=== PATIENT | male | born 1945 | race Caucasian/White ===

== ENCOUNTER 2019-09-19 09:02 | Day surgery (SDC) | payer MEDICARE, BC ==
[~2019-09-19 09:02] MED LIST: CHONDR SU A NA/HYALUR INTRAOC KIT (SURGICARE) ONE; DORZOLAMIDE HCL 2%/TIMOLOL MALEAT 0.5% OPH SOLN 10 ML OS PRN; EPINEPHRINE INJ/PF 1 MG/1 ML AMPULE ONE; KETOROLAC TROMETHAMINE 0.45% 4 DROP/0.4 ML DROPERETTE OS PRN; LIDOCAINE 1%/PHENYLEPHRINE 1.5% 1 ML VIAL ONE
[2019-09-19] MEDS ORDERED: ONDANSETRON HCL INJ/PF 4 MG/2 ML SDV ONE (09:05)
[2019-09-19] MEDS ORDERED: MIDAZOLAM 2 MG/2 ML INJ ONE (09:05)
[2019-09-19] MEDS ORDERED: FENTANYL CITRATE INJ/PF 100 MCG/2 ML AMPUL ONE (09:06)
[2019-09-19] MEDS: TETRACAINE HCL 0.5% OPH SOLN 4 ML OS PRN ×3 (09:50→10:22)
[2019-09-19] MEDS: BESIFLOXACIN HCL 0.6% OPH SUSP 5 ML BOTTLE OS PRN ×3 (09:51→10:43)
[2019-09-19] MEDS: CYCLOPENTOLATE 0.2%/PHENYLEPHRINE 1% OPH SOLN 2 ML OS PRN ×3 (09:51→10:12)
[2019-09-19] MEDS: TROPICAMIDE 1% OPH SOLN 15 ML OS PRN ×3 (09:51→10:12)
--- NOTE | 2019-09-20 07:40 | Operative Report ---
Operative Report-[facility] Operative Report: DATE OF SURGERY: 09/19/2019 PREOPERATIVE DIAGNOSIS: Cataracts, left eye POSTOPERATIVE DIAGNOSIS: Cataract, left eye OPERATION: Cataract extraction with insertion of an toric IOL of the left eye. Intraocular Lens Model: [13.5bj2by5 rotated to 88 degrees] Reason for surgery was difficulty seeing road signs SURGEON: Evan Upton MD ANESTHESIA: Topical PROCEDURE: After obtaining appropriate consent, the patient's left eye was prepped and draped in a sterile fashion as well as the surgeon in the sterile manner and cataract surgery was started. First a paracentesis blade was used to make a side-port incision. Viscoelastic was used to inflate the anterior chamber. Next a 2.4 mm incision was made with a 2.4 mm blade, clear corneal temporarily. A continuous capsulorrhexis was made using a cystotome and Utrata forceps. Following this hydrodissection was carried out to make commands fully loose and mobile and it was rotated 90 degrees. Following this, a divide and conquer technique was used to phacoemulsify the lens. The remaining cortex was removed with an irrigation/aspiration. Provisc was instilled into the capsular bag to inflate the bag.The intracular lens was placed. The remaining viscoelastic material was removed with irrigation/aspiration. Following this, the incision was found to be watertight. Besivance and Cosopt was instilled into the eye and a protective shield was placed over the eye. The patient was turned to the postoperative recovery in a stable condition.
== END 2019-09-19 11:38 | disposition home or self-care (01) ==
LOC: SC 09:02
PROVIDERS: ATTEND Internal Medicine
DX: H25.13 Age-related nuclear cataract, bilateral (principal); I10 Essential (primary) hypertension; E78.00 Pure hypercholesterolemia, unspecified; Z87.891 Personal history of nicotine dependence
CPT/HCPCS: 66984; 00142; V2787; J2250; J3490 ×2; A9270; J0171; J3010; J2405; J2370; 142

== ENCOUNTER 2019-10-12 09:39 | Day surgery (SDC) | payer MEDICARE, BC ==
[~2019-10-12 09:39] MED LIST changes: -DORZOLAMIDE HCL 2%/TIMOLOL MALEAT 0.5% OPH SOLN 10 ML OS PRN; +KETOROLAC TROMETHAMINE 0.45% 4 DROP/0.4 ML DROPERETTE OD PRN; -KETOROLAC TROMETHAMINE 0.45% 4 DROP/0.4 ML DROPERETTE OS PRN
[2019-10-12] MEDS: TETRACAINE HCL 0.5% OPH SOLN 4 ML OD PRN ×3 (10:46→11:30)
[2019-10-12] MEDS: BESIFLOXACIN HCL 0.6% OPH SUSP 5 ML BOTTLE OD PRN ×4 (10:47→11:57)
[2019-10-12] MEDS: CYCLOPENTOLATE 0.2%/PHENYLEPHRINE 1% OPH SOLN 2 ML OD PRN ×3 (10:47→11:13)
[2019-10-12] MEDS: TROPICAMIDE 1% OPH SOLN 15 ML OD PRN ×3 (10:47→11:13)
[2019-10-12] MEDS ORDERED: FENTANYL CITRATE INJ/PF 100 MCG/2 ML AMPUL ONE (11:11)
[2019-10-12] MEDS ORDERED: MIDAZOLAM 2 MG/2 ML INJ ONE ×2 (11:11→11:29)
[2019-10-12] MEDS: DORZOLAMIDE HCL 2%/TIMOLOL MALEAT 0.5% OPH SOLN 10 ML OD PRN ×2 (11:57)
--- NOTE | 2019-10-12 16:04 | Operative Report ---
Operative Report-[facility] Operative Report: DATE OF SURGERY: 10/12/2019 PREOPERATIVE DIAGNOSIS: Cataract, right eye POSTOPERATIVE DIAGNOSIS: Cataract, right eye OPERATION: Cataract extraction with insertion of an toric IOL of the right eye. Intraocular Lens Model: [13.0 [id number] rotated to 85 degrees] Reason for surgery was difficulty seeing small print SURGEON: Evan Upton MD ANESTHESIA: Topical PROCEDURE: After obtaining appropriate consent, the patient's right eye was prepped and draped in a sterile fashion as well as the surgeon in the sterile manner and cataract surgery was started. First a paracentesis blade was used to make a side-port incision. Viscoelastic was used to inflate the anterior chamber. Next a 2.4 mm incision was made with a 2.4 mm blade, clear corneal temporarily. A continuous capsulorrhexis was made using a cystotome and Utrata forceps. Following this hydrodissection was carried out to make the avtar fully loose and mobile and it was rotated. Following this, a divide and conquer technique was used to phacoemulsify the avtar. The remaining cortex was removed with an irrigation/aspiration. Provisc was instilled into the capsular bag to inflate the bag. The intraocular lens was placed. The remaining viscoelastic material was removed with irrigation/aspiration. Following this, the incision was found to be watertight. Besivance and Cosopt was instilled into the eye and a protective shield was placed over the eye. The patient was reurned to the postoperative recovery in a stable condition.
== END 2019-10-12 12:46 | disposition home or self-care (01) ==
LOC: SC 09:39
PROVIDERS: ATTEND Internal Medicine
DX: H25.11 Age-related nuclear cataract, right eye (principal); Z96.1 Presence of intraocular lens; I10 Essential (primary) hypertension; Z79.899 Other long term (current) drug therapy
CPT/HCPCS: 66984; V2787; J2250; J3490 ×2; A9270; J0171; J3010; J2370; 142